=== PATIENT | female | born 1985 | race Hispanic/Latino ===

== ENCOUNTER 2018-09-05 11:06 | Observation (INO) | payer BC ==
[~2018-09-05] VITALS: Ht 152.4 cm; Wt 87.7 kg
--- OUTSIDE RECORDS SUMMARY | 2018-09-05 11:09 | XMS REPORT ---
Author Author [facility] Address Unknown Phone Unavailable Care Team Providers Care Rounding Machine Tender Name Role Phone Unavailable Unavailable Payers Payer Name Policy Type Policy Number Effective Date Expiration Date Problems This patient has no known problems. Allergies, Adverse Reactions, Alerts Allergy Name Allergy Type Status Severity Reaction(s) Onset Date Inactive Date Treating Clinician Comments No Known Allergies DA Active U 2011-08-07 00:00:00 Medications This patient has no known medications.
[2018-09-05] MEDS ORDERED: SODIUM CHLORIDE 0.9% 1000ML 1,000 ML IV STA ×2 (11:33→13:18)
[2018-09-05] MEDS ORDERED: ONDANSETRON HCL INJ 2 MG/ML VIAL IV STA (11:41)
[2018-09-05] MEDS ORDERED: PANTOPRAZOLE 40 MG 10ML VIAL IV ONE (11:45)
[2018-09-05 12:03] LABS: BILIRUBIN,URINE NEGATIVE (NEGATIVE); CLARITY,URINE CLEAR (CLEAR); COLOR,URINE YELLOW (YELLOW); KETONES,URINE NEGATIVE (NEGATIVE); LEUKOCYTE ESTERASE ,URINE NEGATIVE (NEGATIVE); NITRITE,URINE NEGATIVE (NEGATIVE); PREGNANCY TEST, URINE NEGATIVE (NEGATIVE); PROTEIN,URINE DIPSTICK NEGATIVE (NEGATIVE); URINE UROBILINOGEN 0.2 mg/dL (0.2 - 1)
[2018-09-05 12:04] LABS: AMPHETAMINES SCREEN,URINE NEGATIVE (NEGATIVE); BENZODIAZEPINES SCREEN,URINE NEGATIVE (NEGATIVE); PHENCYCLIDINE SCREEN,URINE NEGATIVE (NEGATIVE)
[2018-09-05 12:09] LABS: BACTERIA,URINE FEW /HPF; EPITHELIAL CELLS,URINE FEW /LPF; WBC,URINE (MAN) 0-5 /HPF (0-5)
[2018-09-05 12:22] LABS: BASOPHILS % 0.4 % (0.0-1.0); EOSINOPHILS % 0.3 % (0.0-6.0); HEMOGLOBIN 15.1 g/dL (12.0-16.0); LYMPHOCYTES # (AUTO) 1.7 (1.0-3.2); LYMPHOCYTES % 15.8 % (18.0-39.1); MEAN CORPUSCULAR HEMOGLOBIN 27.3 pg (28-32); MEAN CORPUSCULAR HGB CONC 32.8 g/dL (31-35); MONOCYTES # (AUTO) 0.4 (0.2-0.8); NEUTROPHILS # (AUTO) 8.7 (2.1-6.9); NEUTROPHILS % 79.1 % (38.7-80.0); PLATELET COUNT 458 x10e3/uL (140-360); RED BLOOD COUNT 5.54 x10e6/uL (3.6-5.1); RED CELL DISTRIBUTION WIDTH 13.2 % (11.7-14.4)
[2018-09-05 12:29] LABS: INR 0.87; PROTHROMBIN TIME 12.6 seconds (11.9-14.5)
[2018-09-05 12:30] LABS: PARTIAL THROMBOPLASTIN TIME 32.3 seconds (23.8-35.5)
[2018-09-05 12:40] LABS: ALANINE AMINOTRANSFERASE 17 IU/L (0-55); ALBUMIN 4.4 g/dL (3.5-5.0); ALKALINE PHOSPHATASE 105 IU/L (40-150); AMYLASE 54 U/L (25-125); ANION GAP 14.3 mmol/L (8-16); BLOOD UREA NITROGEN 9 mg/dL (7-26); BUN/CREATININE RATIO 11 (6-25); CALCIUM 10.5 mg/dL (8.4-10.2); CARBON DIOXIDE 22 mmol/L (22-29); CHLORIDE 105 mmol/L (98-107); CREATINE KINASE 68 IU/L (29-168); CREATININE, SERUM 0.79 mg/dL (0.57-1.11); EST GLOMERULAR FILTRATION RATE > 60 ML/MIN (60-); GLUCOSE 139 mg/dL (74-118); LIPASE 30 U/L (8-78); MAGNESIUM 2.6 MG/DL (1.3-2.1); POTASSIUM 3.3 mmol/L (3.5-5.1); SODIUM 138 mmol/L (136-145)
--- NOTE | 2018-09-05 12:41 | Diagnostic Imaging Report ---
EXAMINATION: CHEST 2 VIEWS INDICATION: Midsternal, left lower chest pain. Dyspnea. ^TACHYCARDIA, NEAR-SYNCOPE ^[id number] ^1220 COMPARISON: None FINDINGS: PA and lateral views TUBES and LINES: None. LUNGS: Lungs are well inflated. Lungs are clear. There is no evidence of pneumonia or pulmonary edema. PLEURA: No pleural effusion or pneumothorax. HEART AND MEDIASTINUM: The cardiomediastinal silhouette is unremarkable. BONES AND SOFT TISSUES: No acute osseous lesion. Soft tissues are unremarkable. UPPER ABDOMEN: No free air under the diaphragm. IMPRESSION: No acute thoracic abnormality. Signed by: DR. Geoffrey Becerra MD on 09/05/2018 12:38 PM
[2018-09-05 13:00] LABS: THYROID STIMULATING HORMONE 0.701 uIU/mL (0.350-4.940)
[2018-09-05] MEDS ORDERED: METOPROLOL TARTRATE 25 MG TAB PO NR (13:30)
[2018-09-05] MEDS ORDERED: POTASSIUM CHLORIDE 20 MEQ TAB CR PO NR (13:30)
--- NOTE | 2018-09-05 13:49 | Diagnostic Imaging Report ---
EXAM: CT Abdomen and Pelvis WITHOUT contrast INDICATION: Feels faint. Bilateral flank pain for 2 days. ^Stone Protocol ^[id number] ^1320 ^Y COMPARISON: None. TECHNIQUE: Abdomen and pelvis were scanned utilizing a multidetector helical scanner from the lung base to the pubic symphysis without administration of IV contrast. Absence of intravenous contrast decreases sensitivity for detection of focal lesions and vascular pathology. Coronal and sagittal reformations were obtained. Routine protocol was performed. IV CONTRAST: None ORAL CONTRAST: Water COMPLICATIONS: None RADIATION DOSE: Total DLP: 658.1 mGy*cm Estimated effective dose: (DLP x 0.015 x size factor) mSv CTDIvol has been reviewed. It is below the limits set by the Radiation Protocol Committee (RPC). Dose modulation, iterative reconstruction, and/or weight based adjustment of the mA/kV was utilized to reduce the radiation dose to as low as reasonably achievable. FINDINGS: LINES and TUBES: None. LOWER THORAX: Right middle lobe 4 mm nodule. HEPATOBILIARY: No focal hepatic lesions. No biliary ductal dilation. GALLBLADDER: No radio-opaque stones or sludge. No wall thickening. SPLEEN: No splenomegaly. PANCREAS: No focal masses or ductal dilatation. ADRENALS: No adrenal nodules KIDNEYS/URETERS: No hydronephrosis. No cystic or solid mass lesions. No stones. GI TRACT: No abnormal distention, wall thickening, or evidence of bowel obstruction. There are diverticula within the colon without evidence of diverticulitis. Appendix is normal. PELVIC ORGANS/BLADDER: Unremarkable. LYMPH NODES: No lymphadenopathy. VESSELS: Unremarkable. PERITONEUM / RETROPERITONEUM: No free air or fluid. BONES: Unremarkable. SOFT TISSUES: Unremarkable. IMPRESSION: No acute abnormalities in the abdomen or pelvis. Signed by: DR. Geoffrey Becerra MD on 09/05/2018 1:45 PM
[2018-09-05] MEDS ORDERED: ONDANSETRON HCL INJ 2 MG/ML VIAL IV PRN (15:30)
--- NOTE | 2018-09-05 16:18 | Diagnostic Imaging Report ---
EXAMINATION: Head CT HISTORY: Headache. COMPARISON: None. TECHNIQUE: Multidetector axial images were obtained without contrast from the foramen magnum to the vertex . The images were reconstructed using brain and bone algorithms. Thin section brain images were reformatted into coronal and sagittal planes. Intravenous contrast: None. Image quality: Motion/streaking artifact limits the evaluation of the skull base and posterior cranial fossa. Dose modulation, iterative reconstruction, and/or weight based adjustment of the mA/kV was utilized to reduce the radiation dose to as low as reasonably achievable. FINDINGS: Parenchyma: 1. No abnormal densities. 2. No mass or hemorrhage. No CT evidence of acute territorial vascular insult. Extra-axial spaces:No abnormal density. No extra-axial fluid collections Brain volume: Normal for age. Ventricles: No hydrocephalus or displacement. Arteries: No density suggestive of thrombus. Dural sinuses: No abnormal density. Extra-axial spaces: No abnormal density. Foramen magnum: No mass, Chiari malformation, or basilar invagination. Sella: No obvious mass. Paranasal/mastoid sinuses: Imaged portions unremarkable. Skull/Scalp: No lytic or blastic lesions. No fractures. IMPRESSION: Normal head CT. Signed by: Dr. Ally Figueroa M.D. on 09/05/2018 4:15 PM
[2018-09-05 17:09] VITALS: BP 108/68
[2018-09-05 17:12] VITALS: BP 108/68
[2018-09-05 17:43] VITALS: BP 108/68
[2018-09-05] MEDS: SODIUM CHLORIDE 0.9% 1000ML 1,000 ML IV SCH (18:01)
[2018-09-05] MEDS: HYDROCODONE/APAP 7.5MG-325MG 1 EA TAB PO PRN (18:02)
[2018-09-05 20:04] LABS: CREATINE KINASE MB 0.6 ng/mL (0-5.0)
[2018-09-05 20:30] VITALS: BP 105/62
[2018-09-05] MEDS ORDERED: ATORVASTATIN CA20 MG PO (21:50)
[2018-09-05] MEDS ORDERED: CYMBALTA30 MG PO (21:51)
[2018-09-05 21:57] VITALS: BP 100/59
[2018-09-06] MEDS: SODIUM CHLORIDE 0.9% 1000ML 1,000 ML IV SCH ×3 (01:30→21:30)
[2018-09-06 04:00] VITALS: BP 90/52
[2018-09-06 04:50] LABS: BASOPHILS % 0.2 % (0.0-1.0); EOSINOPHILS # (AUTO) 0.1 (0.0-0.4); EOSINOPHILS % 1.4 % (0.0-6.0); HEMATOCRIT 35.9 % (34.2-44.1); HEMOGLOBIN 11.7 g/dL (12.0-16.0); LYMPHOCYTES # (AUTO) 2.7 (1.0-3.2); LYMPHOCYTES % 27.1 % (18.0-39.1); MEAN CORPUSCULAR HEMOGLOBIN 27.8 pg (28-32); MEAN CORPUSCULAR HGB CONC 32.6 g/dL (31-35); MEAN CORPUSCULAR VOLUME 85.3 fL (81-99); MONOCYTES # (AUTO) 0.7 (0.2-0.8); MONOCYTES % 6.9 % (4.4-11.3); NEUTROPHILS # (AUTO) 6.4 (2.1-6.9); PLATELET COUNT 327 x10e3/uL (140-360); RED BLOOD COUNT 4.21 x10e6/uL (3.6-5.1); RED CELL DISTRIBUTION WIDTH 13.4 % (11.7-14.4)
[2018-09-06 05:07] LABS: CREATINE KINASE 52 IU/L (29-168)
[2018-09-06 05:49] LABS: ANION GAP 11.5 mmol/L (8-16); BLOOD UREA NITROGEN 5 mg/dL (7-26); BUN/CREATININE RATIO 7 (6-25); CALCIUM 8.6 mg/dL (8.4-10.2); CARBON DIOXIDE 23 mmol/L (22-29); CHLORIDE 109 mmol/L (98-107); CHOL/HDL RATIO 4.3 (3.0-3.6); CHOLESTEROL 158 MD/DL (0-199); CREATININE, SERUM 0.67 mg/dL (0.57-1.11); EST GLOMERULAR FILTRATION RATE > 60 ML/MIN (60-); GLUCOSE 98 mg/dL (74-118); HDL CHOLESTEROL 37 MG/DL (40-60); LDL CHOLESTEROL 90 MG/DL (60-130); POTASSIUM 3.5 mmol/L (3.5-5.1); SODIUM 140 mmol/L (136-145); TRIGLYCERIDES 155 MG/DL (0-149)
[2018-09-06 08:30] VITALS: BP 100/51
[2018-09-06] MEDS: HYDROCODONE/APAP 7.5MG-325MG 1 EA TAB PO PRN ×3 (08:57→21:13)
[2018-09-06 12:05] VITALS: BP 104/66
[2018-09-06] MEDS: ACETAMINOPHEN 325 MG TAB PO PRN (13:05)
--- NOTE | 2018-09-06 13:05 | Consultation ---
DATE OF CONSULTATION: September 06, 2018 CARDIOLOGY CONSULTATION REFERRING PHYSICIAN: Shashi Stewart MD CHIEF COMPLAINT: Lightheadedness, palpitations, headaches and chest pain. HISTORY OF PRESENT ILLNESS: Ms. Giles is a 33-year-old woman with a history of dyslipidemia, obesity, and former drug abuse including cocaine. However, described as polysubstance for which she has been in remission for several months to years. She presents to [facility] via the emergency department with complaints of lightheadedness associated with bouts of palpitations, which occur frequently and recurrently for several months now. She also describes pounding and headache. She describes a family history of intracranial aneurysms in multiple family members and is concerned given her headache, requesting further workup. She describes occasional fleeting episode of chest discomfort, worse with deep inspiration, unaffected by ambulation, exercise, meals or position. IV fluids were initiated with some improvement in her heart rate. Her hemoglobin is 11.7, white count 9.9. Creatinine 0.6. Serial cardiac enzymes have been negative times 3. Her TSH is 0.7, within normal limits. Her LDL is 90, HDL 37, triglycerides 155. A1c 5.1. Lactic acid within normal reference range. Chest x-ray shows no acute thoracic abnormality. CT head, noncontrast: No acute abnormality. Abdomen and pelvis: No acute abnormality reported. Telemetry in sinus rhythm with episodes of sinus tachycardia in the low 100s. REVIEW OF SYSTEMS: Twelve systems reviewed, negative except for as noted above. ALLERGIES: CODEINE. PAST MEDICAL HISTORY: Per HPI. SOCIAL HISTORY: No current alcohol, drugs or smoking. However, former drug abuse history. FAMILY HISTORY: Significant for multiple family members with intracranial aneurysms. PHYSICAL EXAMINATION VITALS: Temperature 98 degrees, heart rate 97, respiratory rate 18, blood pressure 100/51, O2 sat 97% on room air. GENERAL: No acute distress. Alert, active. NECK: No JVD. CHEST: Clear to auscultation. CARDIOVASCULAR: Regular rate and rhythm, normal S1 and S2. No S3. No S4. No murmurs or rubs. ABDOMEN: Soft. Nontender, nondistended. EXTREMITIES: No cyanosis, clubbing or edema. CARDIOVASCULAR MEDICATIONS: Reviewed. ASSESSMENT 1. Palpitations, suspect tachycardia arrhythmia. 2. Atypical chest pain with pleuritic features. 3. Headache in the setting of family history of intracranial aneurysms. 4. Presyncope. RECOMMENDATIONS 1. Obtain echocardiogram. 2. CTA chest, PE protocol. 3. Imaging studies to further rule out intracranial aneurysm given headache history. Will discuss with radiology. CTA head and neck versus MRI/MRA. Depending on other recommendations, will proceed. 4. Please keep the patient on telemetry. 5. Continue IV fluids. 6. Check UDS. Job#: [id number]
--- NOTE | 2018-09-06 13:08 | Diagnostic Imaging Report ---
EXAMINATION: CT scan of the chest with contrast. TECHNIQUE: Helical CT images of the chest were performed from the lung apices to the level of the adrenal glands after the intravenous administration of 100 cc of Omnipaque 300. Coronal and sagittal reformatted images were obtained.Dose modulation, iterative reconstruction, and/or weight based adjustment of the mA/kV was utilized to reduce the radiation dose to as low as reasonably achievable. COMPARISON: None. CLINICAL HISTORY:Syncope DISCUSSION: LINES/TUBES: None. LUNGS AND AIRWAYS: Calcified granuloma right upper lobe. No consolidation. No interstitial lung disease. No pulmonary embolism. PLEURA: No pneumothorax or pleural effusions. HEART AND MEDIASTINUM: The thyroid gland is normal. The heart and pericardium are within normal limits. LYMPH NODES: There is no mediastinal, hilar or axillary lymphadenopathy. ABDOMEN: Limited contrast-enhanced views of the upper abdomen show no abnormality within the visualized liver, spleen, pancreas, or kidneys. The adrenal glands are normal. BONES AND SOFT TISSUES: No acute bony abnormalities. IMPRESSION: Unremarkable CT of the chest. Signed by: Dr. Denys Mina M.D. on 09/06/2018 1:04 PM
[2018-09-06] MEDS ORDERED: LORAZEPAM INJ 2 MG/ML VIAL IV ONE (13:15)
[2018-09-06] MEDS ORDERED: IOPAMIDOL 370 MG/ML 200 ML INFUS..BTL INJ ONE (13:27)
[2018-09-06] MEDS ORDERED: SODIUM CHLORIDE 0.9% 50ML 50 ML ONE (13:27)
--- NOTE | 2018-09-06 15:49 | Diagnostic Imaging Report ---
EXAMINATION: MR angiogram of the [place] [without] contrast CLINICAL HISTORY: Near syncope, palpitations, family history of intracranial aneurysm. COMPARISON: N/A TECHNIQUE: 3D TOF MR angiogram sequences of the head was performed without contrast. MIP images of the arteries were isolated into anterior-posterior groups. The source images, reformatted axial and coronal images, and construction sales representative projections of the MIP images through 180 degrees of rotation and tumbling were reviewed. FINDINGS: The vessels of the [place] and posterior circulation are patent, there is no evidence of significant stenosis. No vascular malformation or aneurysmal dilatation is identified. Anatomic variation: Anterior Communicating Artery: Not well visualized Posterior Communicating Arteries: Patent on the right, not well-visualized on the left Vertebral arteries: The left is slightly dominant. The left likewise not well visualized. IMPRESSION: Normal MR angiogram of the [place]. Particularly no intracranial aneurysms. Signed by: Dr. Ally Figueroa M.D. on 09/06/2018 3:44 PM
[2018-09-06 16:38] VITALS: BP 98/55
[2018-09-06 20:00] VITALS: BP 127/78
[2018-09-06 23:42] VITALS: BP 127/78
[2018-09-07] VITALS: BP 116/58
[2018-09-07 04:00] VITALS: BP 103/59
[2018-09-07] MEDS: HYDROCODONE/APAP 7.5MG-325MG 1 EA TAB PO PRN ×2 (06:01→12:51)
[2018-09-07] MEDS: SODIUM CHLORIDE 0.9% 1000ML 1,000 ML IV SCH (07:30)
[2018-09-07 08:30] VITALS: BP 138/62
[2018-09-07] MEDS: ACETAMINOPHEN 325 MG TAB PO PRN (09:38)
[2018-09-07] MEDS ORDERED: ACETAMIN/BUTALBITAL/CAFFEINE TAB PO ONE (10:30)
[2018-09-07] MEDS ORDERED: BUTALB-ACETAMI1 EACH PO (10:37)
[2018-09-07 12:37] VITALS: BP 109/58
--- NOTE | 2018-09-07 19:07 | Progress Note ---
DATE: September 07, 2018 CARDIOLOGY PROGRESS NOTE SUBJECTIVE: Headache, constant cough radiating to the back of the neck. No other complaints. OBJECTIVE VITAL SIGNS: Temperature 98.7, heart rate 102, respiratory rate 20, blood pressure 138/62, O2 sat 99%. GENERAL: In no acute distress, alert. NECK: No JVD. CHEST: Clear to auscultation. CARDIOVASCULAR: Regular rate and rhythm. Normal S1 and S2, no S3 or S4. No murmurs and no rubs. ABDOMEN: Soft and nontender, nondistended. EXTREMITIES: No cyanosis, clubbing or edema. CARDIOVASCULAR MEDICATIONS: Reviewed. IV fluids. Acetaminophen. Butalbital. Caffeine tablets. LABORATORY STUDIES: Reviewed. Potassium 3.5. Sodium 140. . Creatinine 0.6. Hemoglobin 11.7. 0.8. Normal transaminases. BMI of 37.6. ASSESSMENT 1. Palpitations. 2. Sinus tachycardia. 3. Presyncope. 4. Morbid obesity. 5. Headache. 6. Family history of intracranial aneurysms. 7. Reported history of dyslipidemia. PLAN: 1. No evidence of arrhythmias throughout hospital stay. The patient improving with IV fluids. 2. MRA vein with no documentation of intracranial aneurysms. 3. CTA chest, ruled out PE or aortic pathology. 4. Echocardiogram with preserved left ventricular systolic function. 5. Okay to discharge from a cardiovascular standpoint with outpatient followup with consideration of telemetry monitoring and further workup in the office. Job#: [id number]
--- NOTE | 2018-11-02 01:33 | Discharge Summary ---
CHIEF COMPLAINT: Near syncope and palpitations. FINAL DIAGNOSES 1. Palpitations. 2. Chest pain. 3. Hyperlipidemia. DISPOSITION: Home. This 33-year-old female with history of HLD, major depression/anxiety, brought to the ER with a 2-day history of intermittent mid chest pain described as pressure across the anterior chest associated with palpitations and dizziness. The episode brought the patient to the ER. This episode lasted longer and was stronger associated with a near syncopal event. She has no other complaints other than having watery stools for the past 2 days. She underwent review and evaluation in the emergency room. EKGs were monitored closely. The patient was admitted to the facility for evaluation regarding chest pain, etiology uncertain, rule out cardiac ischemia, palpitations, major depression disorder/anxiety, HLD. With admission cardiac enzymes would be reviewed for 3 sets, requested cardiology followup, also requested thyroid function studies. The patient is on the med/surg floor, on a cardiac diet, resting comfortably, asymptomatic, on IV fluids, receiving some acetaminophen and hydrocodone for pain management. Laboratory studies were showing stable electrolytes. Kidney function was stable. Glucose was 98. CBC was stable. Her medications remained the same. Her care continued uneventfully. No further events. The patient was able to be discharged on 09/07/2018 in stable condition. EKGs are showing evidence of sinus tachycardia. With discharge, the patient will continue on a regular diet. No equipment or supplies necessary. No drains or Foleys are needed. Activity level as directed by me as well as Dr. Baca, was instructed to follow back up with him in his office within 1-2 weeks. Regarding PCPs, she has no documented physician on her demographic sheet. She may follow with me in 2 weeks or choose a primary care physician. She will be given a prescription for atorvastatin 20 mg at bedtime. She will be on butalbital/acetaminophen/caffeine 50/325/40 mg 1 tablet every 6 hours as needed for headache. She will also be on Cymbalta 60 mg daily. If she has any similar symptoms, breakthrough from her medications, she will be reporting back to the emergency room. Dictated By: CAMRYN Ventura Job#: [id number] LAURA
== END 2018-09-07 12:57 | disposition home or self-care (01) ==
LOC: ER 11:06 → ERHOLD 15:43 → MED/SURG2 17:19 → MED/SURG 21:57
DX: R00.2 Palpitations (principal); R07.89 Other chest pain; R42 Dizziness and giddiness; E87.6 Hypokalemia; R51 Headache; E78.5 Hyperlipidemia, unspecified; F32.9 Major depressive disorder, single episode, unspecified; Z82.49 Family history of ischemic heart disease and other diseases of the circulatory system; R00.0 Tachycardia, unspecified; E66.01 Morbid (severe) obesity due to excess calories; R55 Syncope and collapse; Z68.37 Body mass index [BMI] 37.0-37.9, adult
CPT/HCPCS: 36415 ×2; 70450; 70544; 71046; 71260; 74176; 80048; 80053; 80061; 80307; 81001; 81025; 82150; 82550 ×2; 82553 ×2; 83036; 83605; 83690; 83735; 83880; 84443; 84484 ×2; 85025 ×2; 85379; 85610; 85730; 87040; 87086; 93005; 93306; 99284; G0378 ×3; J2060; J2405 ×2; J7030 ×3; Q9967

== ENCOUNTER 2018-10-30 17:38 | Emergency (ER) | payer BC ==
[~2018-10-30] VITALS: Ht 304.8 cm; Wt 87.5 kg
[~2018-10-30 17:38] MED LIST: ATORVASTATIN CA20 MG PO; BUTALB-ACETAMI1 EACH PO; CYMBALTA30 MG PO
[2018-10-30] MEDS ORDERED: SODIUM CHLORIDE 0.9% 1000ML 1,000 ML IV STA (17:50)
[2018-10-30] MEDS ORDERED: KETOROLAC TROMETHAMINE 30 MG/ML VIAL IV NR (17:50)
[2018-10-30] MEDS ORDERED: ONDANSETRON HCL INJ 2 MG/ML VIAL IV NR (17:50)
[2018-10-30 18:21] LABS: BASOPHILS % 0.3 % (0.0-1.0); EOSINOPHILS # (AUTO) 0.1 (0.0-0.4); EOSINOPHILS % 0.6 % (0.0-6.0); HEMATOCRIT 40.6 % (34.2-44.1); LYMPHOCYTES # (AUTO) 2.5 (1.0-3.2); LYMPHOCYTES % 21.7 % (18.0-39.1); MEAN CORPUSCULAR VOLUME 84.4 fL (81-99); MONOCYTES # (AUTO) 0.9 (0.2-0.8); MONOCYTES % 7.4 % (4.4-11.3); NEUTROPHILS # (AUTO) 8.1 (2.1-6.9); NEUTROPHILS % 69.7 % (38.7-80.0); PLATELET COUNT 468 x10e3/uL (140-360); RED BLOOD COUNT 4.81 x10e6/uL (3.6-5.1); RED CELL DISTRIBUTION WIDTH 13.1 % (11.7-14.4)
[2018-10-30 18:36] LABS: CLARITY,URINE CLEAR (CLEAR); COLOR,URINE YELLOW (YELLOW)
[2018-10-30 18:37] LABS: BILIRUBIN,URINE NEGATIVE (NEGATIVE); KETONES,URINE NEGATIVE (NEGATIVE); LEUKOCYTE ESTERASE ,URINE NEGATIVE (NEGATIVE); NITRITE,URINE NEGATIVE (NEGATIVE); PREGNANCY TEST, URINE NEGATIVE (NEGATIVE); PROTEIN,URINE DIPSTICK NEGATIVE (NEGATIVE); URINE UROBILINOGEN 0.2 mg/dL (0.2 - 1)
[2018-10-30 18:44] LABS: ALANINE AMINOTRANSFERASE 17 IU/L (0-55); ALBUMIN 3.9 g/dL (3.5-5.0); ALKALINE PHOSPHATASE 95 IU/L (40-150); AMYLASE 50 U/L (25-125); ANION GAP 14.7 mmol/L (8-16); BLOOD UREA NITROGEN 10 mg/dL (7-26); BUN/CREATININE RATIO 13 (6-25); CALCIUM 9.7 mg/dL (8.4-10.2); CARBON DIOXIDE 26 mmol/L (22-29); CHLORIDE 102 mmol/L (98-107); CREATININE, SERUM 0.78 mg/dL (0.57-1.11); EST GLOMERULAR FILTRATION RATE > 60 ML/MIN (60-); GLUCOSE 85 mg/dL (74-118); LIPASE 22 U/L (8-78); MAGNESIUM 2.6 MG/DL (1.3-2.1); POTASSIUM 3.7 mmol/L (3.5-5.1); SODIUM 139 mmol/L (136-145)
--- NOTE | 2018-10-30 18:52 | NUR ---
ENDORSED TO ROBERT BAZAN ON [facility].
--- NOTE | 2018-10-30 18:53 | Diagnostic Imaging Report ---
EXAMINATION: CHEST SINGLE (PORTABLE) INDICATION: Cough COMPARISON: CT Chest with contrast 09/06/2018. FINDINGS: TUBES and LINES: None. LUNGS: Lungs are well inflated. There is no evidence of pneumonia or pulmonary edema. Calcified granuloma projects over the right mid lung. PLEURA: No pleural effusion or pneumothorax. HEART AND MEDIASTINUM: The cardiomediastinal silhouette is unremarkable. BONES AND SOFT TISSUES: No acute osseous lesion. Soft tissues are unremarkable. UPPER ABDOMEN: No free air under the diaphragm. IMPRESSION: No acute radiographic abnormality Signed by: Dr. Chasidy Cuevas MD on 10/30/2018 6:49 PM
== END 2018-10-30 19:57 | disposition home or self-care (01) ==
LOC: ER 17:38
DX: R11.2 Nausea with vomiting, unspecified (principal); R19.7 Diarrhea, unspecified; F41.9 Anxiety disorder, unspecified; F32.9 Major depressive disorder, single episode, unspecified
CPT/HCPCS: 36415; 71045; 80053; 81001; 81025; 82150; 82550; 83690; 83735; 85025; 87400; 99284; J1885; J2405; J7030

== ENCOUNTER 2019-05-02 10:32 | Emergency (ER) | payer BC ==
[~2019-05-02] VITALS: Ht 304.8 cm; Wt 87.5 kg
[2019-05-02] MEDS ORDERED: SODIUM CHLORIDE 0.9% 1000ML 1,000 ML IV STA (11:08)
[2019-05-02 11:53] LABS: BASOPHILS % 0.4 % (0.0-1.0); EOSINOPHILS # (AUTO) 0.1 (0.0-0.4); EOSINOPHILS % 1.5 % (0.0-6.0); HEMATOCRIT 41.2 % (34.2-44.1); HEMOGLOBIN 13.1 g/dL (12.0-16.0); LYMPHOCYTES % 21.8 % (18.0-39.1); MEAN CORPUSCULAR HEMOGLOBIN 26.5 pg (28-32); MEAN CORPUSCULAR HGB CONC 31.8 g/dL (31-35); MEAN CORPUSCULAR VOLUME 83.4 fL (81-99); MONOCYTES # (AUTO) 0.5 (0.2-0.8); MONOCYTES % 5.4 % (4.4-11.3); NEUTROPHILS # (AUTO) 6.6 (2.1-6.9); NEUTROPHILS % 70.6 % (38.7-80.0); PLATELET COUNT 420 x10e3/uL (140-360); RED BLOOD COUNT 4.94 x10e6/uL (3.6-5.1); RED CELL DISTRIBUTION WIDTH 15.5 % (11.7-14.4)
[2019-05-02 11:55] LABS: BILIRUBIN,URINE NEGATIVE (NEGATIVE); CLARITY,URINE SL CLOUDY (CLEAR); COLOR,URINE YELLOW (YELLOW); KETONES,URINE NEGATIVE (NEGATIVE); LEUKOCYTE ESTERASE ,URINE NEGATIVE (NEGATIVE); NITRITE,URINE NEGATIVE (NEGATIVE); PROTEIN,URINE DIPSTICK NEGATIVE (NEGATIVE); URINE UROBILINOGEN 0.2 mg/dL (0.2 - 1)
[2019-05-02 11:58] LABS: PREGNANCY TEST, URINE NEGATIVE (NEGATIVE)
[2019-05-02] MEDS ORDERED: DIPHENHYDRAMINE HCL INJ 50 MG/ML VIAL IV ONE (12:00)
[2019-05-02] MEDS ORDERED: METOCLOPRAMIDE HCL 10 MG/2ML VIAL IV ONE (12:00)
[2019-05-02 12:26] LABS: ALANINE AMINOTRANSFERASE 11 IU/L (0-55); ALBUMIN/GLOBULIN RATIO 1.1 (0.8-2.0); ALKALINE PHOSPHATASE 84 IU/L (40-150); AMYLASE 45 U/L (25-125); ANION GAP 9.8 mmol/L (8-16); BLOOD UREA NITROGEN 10 mg/dL (7-26); BUN/CREATININE RATIO 13 (6-25); CALCIUM 9.6 mg/dL (8.4-10.2); CARBON DIOXIDE 29 mmol/L (22-29); CHLORIDE 103 mmol/L (98-107); EST GLOMERULAR FILTRATION RATE > 60 ML/MIN (60-); GLUCOSE 87 mg/dL (74-118); LIPASE 18 U/L (8-78); POTASSIUM 3.8 mmol/L (3.5-5.1); SODIUM 138 mmol/L (136-145)
[2019-05-02 13:10] LABS: BACTERIA,URINE FEW /HPF; EPITHELIAL CELLS,URINE FEW /LPF
--- NOTE | 2019-05-02 13:46 | Diagnostic Imaging Report ---
EXAMINATION: Head CT HISTORY: Posterior occipital headache for the last 4 days, lethargic COMPARISON: Head CT 09/05/2018 TECHNIQUE: Multidetector axial images were obtained without contrast from the foramen magnum to the vertex . The images were reconstructed using brain and bone algorithms. Thin section brain images were reformatted into coronal and sagittal planes. Image quality: Motion/streaking artifact limits the evaluation of the skull base and posterior cranial fossa. Dose modulation, iterative reconstruction, and/or weight based adjustment of the mA/kV was utilized to reduce the radiation dose to as low as reasonably achievable. FINDINGS: Parenchyma: 1. No abnormal densities. 2. No mass or hemorrhage. No CT evidence of acute territorial vascular insult. Extra-axial spaces:No abnormal density. No extra-axial fluid collections Brain volume: Normal for age. Ventricles: No hydrocephalus or displacement. Arteries: No density suggestive of thrombus. Dural sinuses: No abnormal density. Extra-axial spaces: No abnormal density. Foramen magnum: No mass, Chiari malformation, or basilar invagination. Sella: No obvious mass. Paranasal/mastoid sinuses: Imaged portions unremarkable. Skull/Scalp: No lytic or blastic lesions. No fractures. IMPRESSION: Normal head CT, unchanged compared to head CT of 09/05/2018. Signed by: Dr. Ally Figueroa M.D. on 05/02/2019 1:42 PM
[2019-05-02] MEDS ORDERED: MORPHINE SULFATE INJ 4 MG/ML INJ 1ML IV NR (14:00)
--- NOTE | 2019-05-02 14:46 | Diagnostic Imaging Report ---
EXAM: CT Abdomen and Pelvis with contrast INDICATION: Lethargy COMPARISON: None. TECHNIQUE: Abdomen and pelvis were scanned utilizing a multidetector helical scanner from the lung base to the pubic symphysis after administration of IV contrast. Coronal and sagittal reformations were obtained. Routine protocol was performed. Scan was performed when during portal venous phase. IV CONTRAST: 100 cc of Isovue 370 ORAL CONTRAST: Water COMPLICATIONS: None RADIATION DOSE: Total DLP: 444.8 mGy*cm Dose modulation, iterative reconstruction, and/or weight based adjustment of the mA/kV was utilized to reduce the radiation dose to as low as reasonably achievable. FINDINGS: LINES and TUBES: None. LOWER THORAX: Calcified granuloma in the right lower lobe. There is a 5 mm glass nodule within the right middle lobe on series 2, image 4. HEPATOBILIARY: Diffuse mild fatty liver. No evidence of focal lesion. No biliary ductal dilation. CBD measures at the upper limits of normal at 6 mm. GALLBLADDER: No radio-opaque stones or sludge. No wall thickening. SPLEEN: No splenomegaly. PANCREAS: No focal masses or ductal dilatation. ADRENALS: No adrenal nodules KIDNEYS/URETERS: Kidneys enhance symmetrically. No evidence of hydronephrosis, solid mass, or stone. GI TRACT: No evidence of wall thickening or distension. Appendix is normal. PELVIC ORGANS/BLADDER: Decompressed bladder. LYMPH NODES: No lymphadenopathy. VESSELS: Unremarkable. PERITONEUM / RETROPERITONEUM: No free air or fluid. BONES AND SOFT TISSUES: Unremarkable. CONCLUSION: No acute findings in the abdomen and pelvis. Mild fatty liver. Signed by: Dr. Chasidy Cuevas MD on 05/02/2019 2:43 PM
[2019-05-02] MEDS ORDERED: IOPAMIDOL 370 MG/ML 200 ML INFUS..BTL INJ ONE (15:06)
[2019-05-02] MEDS ORDERED: SODIUM CHLORIDE 0.9% 50ML 50 ML ONE (15:06)
[2019-05-02 15:42] VITALS: BP 106/74
== END 2019-05-02 15:45 | disposition home or self-care (01) ==
LOC: ER 10:32
DX: R10.31 Right lower quadrant pain (principal); R10.32 Left lower quadrant pain; R11.2 Nausea with vomiting, unspecified; R19.7 Diarrhea, unspecified; A08.4 Viral intestinal infection, unspecified; F43.10 Post-traumatic stress disorder, unspecified; F41.9 Anxiety disorder, unspecified; F32.9 Major depressive disorder, single episode, unspecified
CPT/HCPCS: 36415; 70450; 74177; 80053; 81001; 81025; 82150; 83690; 85025; 99284; J1200; J2270; J2765; J7030; Q9967

== ENCOUNTER 2019-05-06 07:44 | Observation (INO) | payer BC ==
[~2019-05-06] VITALS: Ht 152.4 cm; Wt 76.2 kg
[2019-05-06] MEDS ORDERED: KETOROLAC TROMETHAMINE 30 MG/ML VIAL IV STA (08:19)
[2019-05-06 08:31] LABS: BASOPHILS % 0.1 % (0.0-1.0); EOSINOPHILS # (AUTO) 0.1 (0.0-0.4); EOSINOPHILS % 1.2 % (0.0-6.0); HEMATOCRIT 39.5 % (34.2-44.1); HEMOGLOBIN 12.9 g/dL (12.0-16.0); LYMPHOCYTES # (AUTO) 0.9 (1.0-3.2); LYMPHOCYTES % 11.1 % (18.0-39.1); MEAN CORPUSCULAR HEMOGLOBIN 27.3 pg (28-32); MEAN CORPUSCULAR HGB CONC 32.7 g/dL (31-35); MEAN CORPUSCULAR VOLUME 83.7 fL (81-99); MONOCYTES # (AUTO) 0.3 (0.2-0.8); MONOCYTES % 4.1 % (4.4-11.3); NEUTROPHILS # (AUTO) 6.7 (2.1-6.9); NEUTROPHILS % 83.3 % (38.7-80.0); PLATELET COUNT 398 x10e3/uL (140-360); RED BLOOD COUNT 4.72 x10e6/uL (3.6-5.1); RED CELL DISTRIBUTION WIDTH 15.1 % (11.7-14.4)
[2019-05-06 08:32] LABS: BILIRUBIN,URINE NEGATIVE (NEGATIVE); CLARITY,URINE CLEAR (CLEAR); COLOR,URINE YELLOW (YELLOW); KETONES,URINE NEGATIVE (NEGATIVE); LEUKOCYTE ESTERASE ,URINE TRACE (NEGATIVE); NITRITE,URINE NEGATIVE (NEGATIVE); PROTEIN,URINE DIPSTICK NEGATIVE (NEGATIVE); URINE UROBILINOGEN 0.2 mg/dL (0.2 - 1)
[2019-05-06 08:50] LABS: BACTERIA,URINE MODERATE /HPF; EPITHELIAL CELLS,URINE FEW /LPF; RBC,URINE 0-5 /HPF (0-5); WBC,URINE (MAN) 0-5 /HPF (0-5)
[2019-05-06 08:51] LABS: ALANINE AMINOTRANSFERASE 216 IU/L (0-55); ALBUMIN/GLOBULIN RATIO 1.3 (0.8-2.0); ALKALINE PHOSPHATASE 150 IU/L (40-150); AMYLASE 37 U/L (25-125); ANION GAP 11.9 mmol/L (8-16); BLOOD UREA NITROGEN 8 mg/dL (7-26); BUN/CREATININE RATIO 11 (6-25); CALCIUM 9.6 mg/dL (8.4-10.2); CARBON DIOXIDE 27 mmol/L (22-29); CHLORIDE 105 mmol/L (98-107); CREATININE, SERUM 0.76 mg/dL (0.57-1.11); EST GLOMERULAR FILTRATION RATE > 60 ML/MIN (60-); GLUCOSE 111 mg/dL (74-118); LIPASE 14 U/L (8-78); POTASSIUM 3.9 mmol/L (3.5-5.1); SODIUM 140 mmol/L (136-145)
--- NOTE | 2019-05-06 09:21 | Diagnostic Imaging Report ---
EXAMINATION: Right upper quadrant ultrasound CLINICAL INDICATION: Abdominal pain COMPARISON: CT abdomen and pelvis 05/02/2019 DISCUSSION: Transverse and longitudinal images of the right upper quadrant were obtained. The liver is normal in size measuring 13.5centimeters in length in the right midclavicular line and shows increased echogenicity. No focal masses are seen in the liver. There is no intrahepatic biliary dilatation. The common bile duct measures 0.4 in caliber. The main portal vein is normal in caliber and measures 9 mm with normal hepatopetal flow. The gallbladder is notable for a [id number] complex, without wall thickening or pericholecystic fluid. Sonographic Angeles sign is reported as negative. The visualized portions of the pancreatic body and proximal tail are unremarkable. The right kidney measures 11.7 centimeters in length. There is normal renal cortical echogenicity and no hydronephrosis, mass or shadowing calculi. Abdominal aorta is nonaneurysmal. IVC is patent. No free fluid is seen. IMPRESSION: Cholelithiasis without sonographic evidence of acute cholecystitis. Hepatic steatosis. Signed by: Dr. Coleman Mckeon M.D. on 05/06/2019 9:17 AM
[2019-05-06] MEDS ORDERED: HYDROMORPHONE 1MG/1ML INJ IV PRN (10:00)
[2019-05-06] MEDS ORDERED: HYDROMORPHONE 2MG/ML 2 MG/ML ML IV PRN (10:30)
[2019-05-06 11:15] VITALS: BP_SYST 109; BP_SYST 111; BP_DIAS 72; BP_DIAS 87
--- NOTE | 2019-05-06 11:15 | NUR ---
Pt received from ER via wheelchair. Alert and oriented x4 with at bedside. Oriented to staff and surroundings. Encouraged to press call guillen if help needed. Both verbalized understanding of teaching. Will monitor
[2019-05-06] MEDS ORDERED: PIPER-TAZ 3.375 GM / NS 50ML IV SCH (12:00)
[2019-05-06 12:24] VITALS: BP 109/72
[2019-05-06] MEDS: PIPER-TAZ 3.375 GM 50 ML IV SCH ×2 (12:40→17:01)
[2019-05-06] MEDS: ONDANSETRON HCL INJ 2MG/ML 2ML 2 MG/ML VIAL IV PRN ×2 (12:40→17:56)
[2019-05-06] MEDS: D5.45%NS/KCL 20MEQ 1,000 ML IV SCH ×2 (12:40→21:36)
[2019-05-06 16:03] VITALS: BP 102/76
[2019-05-06] MEDS: HYDROMORPHONE 2MG/ML 2 MG/ML ML IV PRN ×2 (16:55→21:17)
--- NOTE | 2019-05-06 17:24 | Pre Op History & Physical ---
CHIEF COMPLAINT: Abdominal pain. HISTORY OF PRESENT ILLNESS: The patient is a 33-year-old female, who presents with complaints of severe epigastric abdominal pain radiating to her back associated with nausea and vomiting. The pain started about four days ago. She has had similar milder pains in the past. Evaluation has revealed gallstones. There are no symptoms of jaundice. PAST MEDICAL HISTORY: Significant for anxiety, posttraumatic stress disorder. She has not had previous surgery. MEDICATIONS: Listed in the chart. ALLERGIES: SHE HAS NO KNOWN ALLERGIES. FAMILY HISTORY: Noncontributory. SOCIAL HISTORY: The patient does not smoke cigarettes or drink alcohol. REVIEW OF SYSTEMS: As stated above, otherwise was negative. PHYSICAL EXAMINATION: GENERAL: The patient is awake and alert, in no distress. VITAL SIGNS: Normal. HEENT: Unremarkable. Sclerae are nonicteric. NECK: Supple with no masses. LUNGS: Equal breath sounds that are clear bilaterally. CARDIAC: Regular rate and rhythm with no murmur. ABDOMEN: Soft. There is mild epigastric tenderness. There is no mass. There is no organomegaly. EXTREMITIES: Have no edema. Pulses are palpable. NEUROLOGIC: Intact. ASSESSMENT: This is a 33-year-old female with symptoms suggestive of acute on chronic cholecystitis with cholelithiasis. She will benefit from cholecystectomy. She is now admitted to the hospital. PLAN: Laparoscopic cholecystectomy. Procedure was explained to the patient. Thank you for asking me to see Ms. Giles. MD JOHN Montez/MODPatrick /[id number]
[2019-05-06] MEDS ORDERED: LIDOCAINE HCL 2% LOCAL INJ 5 ML SDV VIAL INJ ONE (17:58)
[2019-05-06] MEDS ORDERED: PROPOFOL IV EMULSION 10 MG/ML 20 ML VIAL ONE (17:58)
[2019-05-06] MEDS ORDERED: ROCURONIUM BROMIDE 10 MG/ML 5ML VIAL ONE (17:58)
[2019-05-06] MEDS ORDERED: DEXAMETHASONE SOD PHOS INJ 4 MG/ML VIAL ONE (17:58)
[2019-05-06] MEDS ORDERED: ONDANSETRON HCL INJ 2MG/ML 2ML 2 MG/ML VIAL ONE (17:58)
[2019-05-06] MEDS ORDERED: GLYCOPYRROLATE INJ 1MG/ 5 ML SYR ONE (17:58)
[2019-05-06] MEDS ORDERED: NEOSTIGMINE 5 MG/5ML SYR ONE (17:58)
--- NOTE | 2019-05-06 19:39 | NUR ---
Received change of shift report from AM nurse. Rounds completed.
[2019-05-06 20:00] VITALS: BP 99/61
[2019-05-06] MEDS: PROMETHAZINE 12.5MG/ NACL 0.9% 12.5 MG/50 ML BAG IV PRN (21:17)
[2019-05-07] VITALS (7 sets, daily range): BP systolic 88–130; BP diastolic 52–101
[2019-05-07] MEDS: HYDROMORPHONE 2MG/ML 2 MG/ML ML IV PRN ×6 (03:12→23:03)
[2019-05-07] MEDS: PROMETHAZINE 12.5MG/ NACL 0.9% 12.5 MG/50 ML BAG IV PRN ×4 (03:14→23:03)
[2019-05-07] MEDS: D5.45%NS/KCL 20MEQ 1,000 ML IV SCH (05:00)
[2019-05-07] MEDS: PIPER-TAZ 3.375 GM 50 ML IV SCH ×4 (06:00→17:38)
[2019-05-07 06:13] LABS: BASOPHILS % 0.3 % (0.0-1.0); EOSINOPHILS # (AUTO) 0.2 (0.0-0.4); EOSINOPHILS % 2.5 % (0.0-6.0); HEMATOCRIT 37.3 % (34.2-44.1); HEMOGLOBIN 11.5 g/dL (12.0-16.0); LYMPHOCYTES # (AUTO) 1.6 (1.0-3.2); LYMPHOCYTES % 16.8 % (18.0-39.1); MEAN CORPUSCULAR HEMOGLOBIN 26.8 pg (28-32); MEAN CORPUSCULAR HGB CONC 30.8 g/dL (31-35); MEAN CORPUSCULAR VOLUME 86.9 fL (81-99); MONOCYTES # (AUTO) 0.5 (0.2-0.8); MONOCYTES % 5.5 % (4.4-11.3); NEUTROPHILS # (AUTO) 7.2 (2.1-6.9); NEUTROPHILS % 74.6 % (38.7-80.0); PLATELET COUNT 351 x10e3/uL (140-360); RED BLOOD COUNT 4.29 x10e6/uL (3.6-5.1); RED CELL DISTRIBUTION WIDTH 15.7 % (11.7-14.4)
[2019-05-07 06:27] LABS: ALANINE AMINOTRANSFERASE 133 IU/L (0-55); ALBUMIN 3.4 g/dL (3.5-5.0); ALBUMIN/GLOBULIN RATIO 1.2 (0.8-2.0); ALKALINE PHOSPHATASE 114 IU/L (40-150); AMYLASE 45 U/L (25-125); ANION GAP 12.9 mmol/L (8-16); CALCIUM 9.1 mg/dL (8.4-10.2); CARBON DIOXIDE 28 mmol/L (22-29); CHLORIDE 107 mmol/L (98-107); CREATININE, SERUM 0.91 mg/dL (0.57-1.11); EST GLOMERULAR FILTRATION RATE > 60 ML/MIN (60-); GLUCOSE 107 mg/dL (74-118); LIPASE 18 U/L (8-78); POTASSIUM 3.9 mmol/L (3.5-5.1); SODIUM 144 mmol/L (136-145)
[2019-05-07 06:45] LABS: BLOOD UREA NITROGEN 8 mg/dL (7-26); BUN/CREATININE RATIO 9 (6-25)
--- NOTE | 2019-05-07 07:10 | NUR ---
Pt received resting in bed. Alert and oriented x4. IV fluid ongoing. Call guillen within reach. Will monitor
[2019-05-07] MEDS ORDERED: LORAZEPAM 1 MG TAB PO ONE (12:30)
[2019-05-07] MEDS: ONDANSETRON HCL INJ 2MG/ML 2ML 2 MG/ML VIAL IV PRN (12:33)
--- NOTE | 2019-05-07 12:33 | NUR ---
As per pt's very anxious about surgery because "she feels as if she will not wake up". Emotional support given to pt, and spouse. Ativan PO given as ordered. Will monitor
--- NOTE | 2019-05-07 12:33 | NUR ---
Security, charge nurse, nurse pit supervisor at bedside. Pt very angry, anxious. Verbally disruptive. Wants all staff out of her room. Will monitor
--- NOTE | 2019-05-07 12:55 | NUR ---
Pt very anxious, and verbally disruptive with at bedside. Dr. Johnston called. No special order given. Emotional support given. Will monitor
--- NOTE | 2019-05-07 13:30 | NUR ---
Pt left unit to OR
[2019-05-07] MEDS ORDERED: BUPIVACAINE HCL 0.5% INJ 30 ML VIAL INJ ONE (14:08)
[2019-05-07] MEDS ORDERED: ONDANSETRON HCL INJ 2MG/ML 2ML 2 MG/ML VIAL IV PRN (15:00)
[2019-05-07] MEDS ORDERED: MORPHINE SULFATE INJ 4 MG/ML INJ 1ML IV PRN (15:00)
[2019-05-07] MEDS ORDERED: HYDROCODONE/APAP 5MG-325MG TAB PO PRN (15:00)
[2019-05-07] MEDS ORDERED: MIDAZOLAM HCL 2 MG/2 ML VIAL ONE (15:04)
[2019-05-07] MEDS ORDERED: KETAMINE HCL INJ 50 MG/ML 10 ML VIAL ONE (15:04)
[2019-05-07] MEDS ORDERED: FENTANYL CITRATE/PF 100MCG/2 ML INJ ONE (15:04)
--- NOTE | 2019-05-07 16:28 | NUR ---
Pt returned from PACU. On 2L NC. 4 trocar sites to Abdomen noted. Will monitor
[2019-05-07] MEDS: SODIUM CHLORIDE 0.9% 1000ML 1,000 ML IV SCH (16:33)
--- NOTE | 2019-05-07 16:45 | NUR ---
Pt is allergic to Codeine (cause Nausea), Revillo ordered. Dr. Johnston notified, and gave okay to give Revillo. Pharmacy notified. Will monitor
--- NOTE | 2019-05-07 17:02 | Operative Report ---
DATE OF PROCEDURE: 05/07/2019 SURGEON: Coleman Johnston MD PREOPERATIVE DIAGNOSES: Acute cholecystitis, cholelithiasis. POSTOPERATIVE DIAGNOSES: Acute cholecystitis, cholelithiasis. PROCEDURE: Diagnostic laparoscopy, laparoscopic cholecystectomy. SPINDLE FRAME CARVER: None. ANESTHESIA: General endotracheal. INDICATIONS AND FINDINGS: The patient is a 33-year-old female, who is admitted with complaints of severe epigastric right upper quadrant abdominal pain. Workup revealed gallstones. At surgery, gallbladder was very distended, slightly edematous. There was a stone impacted in the upper cystic duct. Cystic duct was about 3 mm in diameter. Common bile duct was about 6 mm in diameter. Liver, stomach, and lower abdomen all appeared normal. TECHNIQUE: After adequate general endotracheal anesthesia with the patient in supine position, the abdomen was prepped and draped in sterile fashion with ChloraPrep solution. Skin in the umbilicus was infiltrated with 0.5% Marcaine. An incision was made in the umbilicus, abdominal wall was elevated and Veress needle was introduced. Pneumoperitoneum was then created. A 10 mm trocar and cannula was then passed through the umbilical wound. Laparoscopic camera was introduced. Initial laparoscopy revealed the gallbladder to be distended and slightly edematous. A 10 mm trocar and cannula was placed in epigastrium and two 5 mm trocars and cannulas were placed in the right upper quadrant. These were placed under direct vision. Fundus of the gallbladder was grasped, retracted superiorly. Neck of the gallbladder was grasped, retracted laterally. Peritoneum over the neck of the gallbladder was incised. The gallbladder cystic duct junction was dissected free. The cystic artery was also dissected free. The neck of the gallbladder completely dissected free. The cystic artery was divided between hemoclips close to the gallbladder. Cystic duct was also divided between hemoclips. There was noted to be a stone in the upper cystic duct which was pushed back into the gallbladder. Cystic duct was divided between hemoclips with three clips being left on the common bile duct side. The gallbladder was dissected free from the liver using scissors and electrocautery. Once it was entirely free, it was placed into an Endopouch and brought out through the epigastric cannula. There were multiple stones. Gallbladder bed was inspected for hemostasis which was seen to be adequate. It was irrigated with saline, all fluid aspirated, inspected once again for hemostasis, which was seen to be adequate. Instruments and cannulas were then removed. Pneumoperitoneum was evacuated. Wounds were then closed, fascia in the umbilical and epigastric wound closed with 0 Vicryl, skin to all wounds closed with dee dee, sterile dressing was applied to each wound. The patient tolerated the procedure well. Estimated blood loss was 15 mL. There were no complications. All counts were correct and the patient was taken to the recovery room in satisfactory condition. MD JOHN Montez/RACHEL /[id number]
--- NOTE | 2019-05-07 19:13 | NUR ---
Pt resting in bed with 2L NC in place. Handoff given to oncoming shift.
--- NOTE | 2019-05-07 20:00 | NUR ---
Received change of shift report from AM nurse. Walking rounds done.
--- NOTE | 2019-05-07 20:28 | NUR ---
Patient in bed resting quitly. Slightly drowsy. Patient states is it finished yet. Informed patient that procedure was completed and she is ok. Patient went back to sleep. Family at bedside.
[2019-05-07] MEDS ORDERED: ATORVASTATIN 20 MG TAB PO SCH (21:00)
--- NOTE | 2019-05-07 22:30 | NUR ---
Patient upset that pain meds is not working. Informed patient would work better if she gets in bed and relax. Patient states "I am a ex drug attack and this medicine is not touching me".
[2019-05-08] VITALS: BP 119/75
--- NOTE | 2019-05-08 00:26 | NUR ---
Patient c/o itching and unable to sleep. Called Dr Johnston and request meds. Orders received and given.
[2019-05-08] MEDS ORDERED: DIPHENHYDRAMINE HCL 25 MG CAP PO PRN (00:30)
[2019-05-08] MEDS: SODIUM CHLORIDE 0.9% 1000ML 1,000 ML IV SCH (00:53)
[2019-05-08] MEDS: ONDANSETRON HCL INJ 2MG/ML 2ML 2 MG/ML VIAL IV PRN ×2 (02:45→07:52)
--- NOTE | 2019-05-08 02:56 | NUR ---
Pt very anxious, crying, and verbally disruptive with at bedside. Pt threatening to go against medical advice. Primary nurse and charge nurse at bedside. Education given on benefits of staying and to deescalate the situation. Dr Johnston notified of situation and new orders received by primary nurse.
[2019-05-08] MEDS ORDERED: LORAZEPAM 1 MG TAB PO PRN (03:00)
[2019-05-08] MEDS: HYDROMORPHONE 2MG/ML 2 MG/ML ML IV PRN ×2 (03:00→07:52)
--- NOTE | 2019-05-08 03:00 | NUR ---
S/W Dr Granger regarding patient, after receiving orders, he states not to call him back unless it is a real emergency.
[2019-05-08 04:00] VITALS: BP 121/87
--- NOTE | 2019-05-08 05:23 | NUR ---
Patient found by aid slumped over on toilette. Very lethargic but arousable. BP 121/87 104 HR. Friend at bedside removed metal device from floor. Unable to locate device. Patient placed back in bed. Request patient to stay in bed. Continue monitor.
--- NOTE | 2019-05-08 06:30 | NUR ---
updated dr bansal on pt's behavior. stated he is on the way. primary nurse made aware. section housekeeper made aware of situation.
--- NOTE | 2019-05-08 07:08 | NUR ---
Pt received resting in bed. call guillen within reach. Will monitor
[2019-05-08] MEDS ORDERED: ULTRAM50 MG PO (07:25)
[2019-05-08 07:50] VITALS: BP 115/63
[2019-05-08 08:07] VITALS: BP 115/63
[2019-05-08] MEDS ORDERED: DULOXETINE HCL 30 MG DELAYED RELEASE PO SCH (09:00)
--- NOTE | 2019-05-08 09:37 | NUR ---
Pt and given discharge instructions regarding meds, diet, activities, s/s to report, and follow up appointment with PCP. Both verbalized understanding of teaching. Advised pt not to go back to work until she sees Dr. Johnston for a follow up. Pt requesting to sign discharge papers. Will discharge once pt is done with breakfast
--- NOTE | 2019-05-08 09:50 | NUR ---
Pt left unit with all belongings
== END 2019-05-08 09:49 | disposition home or self-care (01) ==
LOC: ER 07:50 → ERHOLD 09:56 → MED/SURG3 11:15
PROVIDERS: ADMIT Surgery; ATTEND Surgery
DX: K80.66 Calculus of gallbladder and bile duct with acute and chronic cholecystitis without obstruction (principal); Z88.5 Allergy status to narcotic agent; F41.9 Anxiety disorder, unspecified; F43.10 Post-traumatic stress disorder, unspecified; D64.9 Anemia, unspecified
CPT/HCPCS: 36415 ×2; 47562; 76705; 80053 ×2; 81001; 82150 ×2; 83690 ×2; 85025 ×2; 88304; 96360; 96361 ×2; 99284; G0378 ×3; J1100; J1170 ×3; J1885; J2001; J2250; J2405 ×3; J2543 ×2; J2550 ×2; J2704; J3010; J3490; J7030